=== PATIENT | female | born 1980 | race Caucasian/White ===

== ENCOUNTER 2019-04-20 06:47 | Emergency (ER) | payer BC ==
[~2019-04-20] VITALS: Ht 160 cm; Wt 59.0 kg
[~2019-04-20 06:47] MED LIST: CARAFATE 1 GM TA1 G1 PO; CELEXA 20 MG TA20 M1 PO; CELEXA20 MG PO; CEPHALEXIN500 MG PO; DULCOLAX5 MG PO; ERYTHROMYCIN250 M1 PO; HUMALOG100 UNIT/1 SUBQ; LANTUS SUBQ; LISINOPRIL5 MG PO; NORCO 5-325 TA1 EACH PO; NOVOLOG100 UNIT/1 SQ; PEPCID20 MG PO; PHENERGAN 25 MG25 M1 PO; PREVACID 15 MG15 M4 DISSOLVE; PROMETHAZINE12.5 M1 PO; PROTONIX40 M1 PO; REGLAN 10 MG TA10 MG PO; RESTASIS1 EACH OPHTHALMIC; TRINATE TABLET1 TAB PO; ZOFRAN ODT4 MG PO
[2019-04-20 07:11] LABS: URINE BILIRUBIN NEGATIVE (Negative); URINE BLOOD 1+ (Negative); URINE CLARITY CLEAR; URINE COLOR YELLOW; URINE GLUCOSE-RANDOM* 3+ (Negative); URINE KETONES NEGATIVE (Negative); URINE LEUKOCYTES-REFLEX NEGATIVE (Negative); URINE NITRITE-REFLEX NEGATIVE (Negative); URINE PROTEIN (DIPSTICK) NEGATIVE (Negative); URINE UROBILINOGEN 0.2 E.U./dl (0.2-1.0)
[2019-04-20 07:21] LABS: BACTERIA-REFLEX None Seen /HPF (None Seen); CASTS None Seen /LPF (None Seen); CRYSTALS None Seen /LPF (None Seen); SQUAMOUS 4-10 Moderate /LPF (0-3); URINE RBC 0-2 Rare /HPF (0-2); URINE WBC-REFLEX 0-5 Rare /HPF (0-5)
[2019-04-20 07:23] LABS: ABSOLUTE NEUTROPHILS 12.5 thou/uL (1.4-8.2); BASOPHILS 0.3 % (0.0-2.0); EOSINOPHILS 0.7 % (0.0-3.0); HEMATOCRIT 29.9 % (37.0-47.0); HEMOGLOBIN 9.7 gm/dL (12.0-15.0); LYMPHOCYTES 4.7 % (24.0-44.0); MCH 26.6 pg (26.0-34.0); MCHC 32.2 g/dL (28.0-37.0); MCV 82.6 fL (80.0-100.0); MONOCYTES 5.2 % (1.0-8.0); PLATELET COUNT 417 thou/uL (150-400); POLYS 89.1 % (36.0-66.0); RBC 3.63 mil/uL (4.20-5.00); RDW 13.8 % (10.5-14.5)
[2019-04-20 07:28] LABS: ANION GAP 11 mmol/L (7-16); BUN 16 mg/dL (7-18); CALCIUM 9.5 mg/dL (8.5-10.1); CHLORIDE 99 mmol/L (98-107); CO2 25 mmol/L (21-32); CREATININE 1.2 mg/dL (0.6-1.0); GLUCOSE 360 mg/dL (74-106); POTASSIUM 4.8 mmol/L (3.5-5.1); SODIUM 135 mmol/L (136-145)
[2019-04-20 07:34] LABS: ALBUMIN 3.7 g/dL (3.4-5.0); DIRECT BILIRUBIN < 0.1 mg/dL (<0.1-0.3); LIPASE 67 U/L (73-393); SGOT 20 U/L (15-37); SGPT 15 U/L (30-65); TOTAL BILIRUBIN 0.3 mg/dL (<0.1-1.0); TOTAL PROTEIN 7.8 g/dL (6.4-8.2)
[2019-04-20 12:56] VITALS: BP 129/63
== END 2019-04-20 12:58 | disposition short-term general hospital (02) ==
LOC: ER 06:47
PROVIDERS: Emergency Medicine
DX: D72.829 Elevated white blood cell count, unspecified (principal); E10.65 Type 1 diabetes mellitus with hyperglycemia; R10.9 Unspecified abdominal pain; Z88.6 Allergy status to analgesic agent

== ENCOUNTER 2019-11-27 09:44 | Emergency (ER) | payer BC, OTHER ==
[~2019-11-27] VITALS: Ht 160 cm; Wt 56.7 kg
[2019-11-27] MEDS ORDERED: CELEXA 10 MG TA10 M1 PO (10:32)
[2019-11-27] MEDS ORDERED: ZOFRAN ODT4 MG PO (11:29)
[2019-11-27] MEDS ORDERED: TYLENOL EXTRA500 MG PO (11:29)
[2019-11-27 13:02] VITALS: BP 145/78
== END 2019-11-27 13:03 | disposition home or self-care (01) ==
LOC: ER 09:44
DX: S00.01XA Abrasion of scalp, initial encounter (principal); E10.9 Type 1 diabetes mellitus without complications; W00.0XXA Fall on same level due to ice and snow, initial encounter; Y92.481 Parking lot as the place of occurrence of the external cause; Y93.89 Activity, other specified; Y99.8 Other external cause status

== ENCOUNTER → 2021-10-25 | Outpatient (CLI) | payer OTHER ==
[~2021-10-25] MED LIST changes: +CELEXA 10 MG TA10 M1 PO; +TYLENOL EXTRA500 MG PO
== END ==
LOC: RAD 09:12
PROVIDERS: ATTEND Nurse Practitioner
DX: S99.921A Unspecified injury of right foot, initial encounter (principal); M20.5X1 Other deformities of toe(s) (acquired), right foot; M79.89 Other specified soft tissue disorders; X58.XXXA Exposure to other specified factors, initial encounter; Y93.89 Activity, other specified; Y92.89 Other specified places as the place of occurrence of the external cause; Y99.8 Other external cause status